=== PATIENT | male | born 1990 | race Caucasian/White ===

== ENCOUNTER 2019-02-23 17:19 | Emergency (ER) | payer SELFPAY ==
[~2019-02-23] VITALS: Ht 188 cm; Wt 88.1 kg
[2019-02-23 18:09] VITALS: Ht 188 cm; Wt 88.1 kg
[2019-02-23 19:56] VITALS: BP 144/94
== END 2019-02-23 19:56 | disposition left against medical advice (07) ==
LOC: ED 17:19
DX: Z53.21 Procedure and treatment not carried out due to patient leaving prior to being seen by health care provider (principal)